=== PATIENT | male | born 1965 | race Caucasian/White ===

== ENCOUNTER 2022-11-14 07:59 | Outpatient (REF) | payer OTHER, SELFPAY ==
[2022-11-14 08:21] LABS: MANUAL DIFF FLAG NO
[2022-11-14 08:48] LABS: Basophils Percent Auto 0.5 % (0-2); Eosinophils Absolute Auto 0.1 X10*3/uL (0.0-0.4); Eosinophils Percent Auto 2.2 % (0-4); Hematocrit 45.5 % (42.0-52.0); Hemoglobin 15.8 g/dl (14.0-18.0); Imm Gran Abs Auto 0.01 X10*3/uL (0.00-0.03); Imm Gran Pct Auto 0.2 % (0.0-0.4); Lymphocytes Absolute Auto 2.7 X10*3/uL (1.2-4.9); Lymphocytes Percent Auto 46.7 % (20-40); Mean Corpuscular HGB Conc 34.7 g/dl (31.0-36.0); Mean Corpuscular Hemoglobin 31.9 pg (27.0-33.0); Mean Corpuscular Volume 91.9 fL (80.0-98.0); Mean Platelet Volume 9.1 fL (9.4-12.4); Monocytes Absolute Auto 0.4 X10*3/uL (0.1-1.2); Monocytes Percent Auto 6.3 % (2-11); Neutrophils Absolute Auto 2.6 x10*3/uL (2.0-8.3); Neutrophils Percent Auto 44.1 % (45-73); Platelet Count 235 X10*3/uL (160-400); Red Blood Count 4.95 X10*6/uL (4.60-5.80); Red Cell Distribution Width 12.2 % (11.0-16.0); White Blood Count 5.9 X10*3/uL (4.8-10.8)
[2022-11-14 09:11] LABS: Alanine Aminotransferase 22 U/L (0-40); Albumin Level 4.3 g/dL (3.5-5.0); Alkaline Phosphatase 66 U/L (39-117); Anion Gap 9 (12-20); Aspartate Amino Transferase 16 U/L (5-37); Bilirubin Total 0.8 mg/dL (0.0-1.0); Blood Urea Nitrogen 25 mg/dL (9-16); Calcium 9.8 mg/dL (8.4-10.2); Carbon Dioxide 29 mmol/L (22-29); Chloride 108 mmol/L (96-108); Cholesterol 172 mg/dL; Estimated Glomerular Filt Rate > 60; Glucose Random 171 mg/dL (60-115); HDL Cholesterol 35 mg/dL; LDL Cholesterol Calculated 110 mg/dl; Potassium 4.8 mmol/L (3.3-5.1); Sodium 141 mmol/L (135-145); Total Protein 6.8 g/dL (6.5-8.0); Triglycerides 139 mg/dL
[2022-11-14 09:47] LABS: Folate 11.5 ng/mL (> or = 4.0); Free T4 (Free Thyroxine) 1.02 ng/dL (0.71-1.85); Prostate Specific Antigen Scr 2.11 ng/mL (<0.05-4.0); Thyroid Stimulating Hormone 2.09 uIU/mL (0.32-4.0); Vitamin B12 469 pg/mL (200-900)
[2022-11-14 10:09] LABS: Creatinine Urine 335.24 mg/dL; Microalbum/Creatinine Ratio Ur 7.7 ug/mg cr
== END 2022-11-14 08:00 | disposition home or self-care (01) ==
LOC: HO.LAB 07:59
PROVIDERS: PCP Internal Medicine; Visit Provider Internal Medicine
DX: Z12.5 Encounter for screening for malignant neoplasm of prostate (principal); E11.65 Type 2 diabetes mellitus with hyperglycemia; E78.00 Pure hypercholesterolemia, unspecified; I10 Essential (primary) hypertension
CPT/HCPCS: 36415; 80053; 80061; 82043; 82607; 82746; 84153; 84439; 84443; 85025

== ENCOUNTER 2023-07-21 12:51 | Outpatient (AMB) | payer OTHER, SELFPAY ==
--- NOTE | 2023-07-21 12:53 | MHC.OFFVIS ---
Intake Vital Signs 07/21/23 12:54 Height 6 ft 1 in Weight 235 lb BMI 31.0 BP 155/91 H Blood Pressure Location Lt brachial Position Sitting Pulse 97 Pulse Source Pulse Oximeter Pulse Oximetry (%) 97 Oxygen Delivery Method Room Air Intake Visit Reasons: POSITIVE COLOG Intake Note: This patient presents for an assessment for positive cologuard. Patient c/o; reports no changes or complaints at this time. Certified Detention Deputy Required: No Accompanied by: Self / Same As Patient Allergies No Known Allergies Allergy (Verified 07/21/23 12:57) Medication List - Last Reconciled 07/21/23 by Bibi Sanders PA-C metformin 500 mg PO BID metoprolol tartrate 50 mg PO BID 90 days simvastatin 5 mg PO DAILY HPI HPI Comments History of Present Illness Details A 57-year-old male referred with positive Cologuard- he has no GI complaints. He says all his sisters had polyps- No Fam hx CRC- Appetite is very Bowels normal No cardiac or respiratory issues No nausea, vomiting, hematemesis, hematochezia fever chills PFSH Medical History Vitamin D deficiency Hypertension Obesity (BMI 30-39.9) Hypercholesterolemia Type 2 diabetes mellitus with hyperglycemia Surgical History History of sinus surgery Family History Father Hypertension Diabetes CVD (cardiovascular disease) Heart problem Mother Breast cancer Social History Housing: House Alcohol intake: former Patient Tobacco Use Status: Never used Tobacco e-Cigarette/Vaping Use: Never Used Second Hand Smoke Exposure: No Current occupational status: employed Cognitive needs: No Hearing needs: No Vision needs: No Review of Systems Const All systems reviewed & are unremarkable except as noted in HPI and below Card Denies chest pain and Denies dyspnea Resp Denies dyspnea GI Denies abdominal pain, Denies hematochezia, Denies change in bowel habits, Denies dyspepsia, Denies heartburn, Denies diarrhea, Denies nausea and Denies vomiting Physical Exam Vital Signs: Last Vital Signs Pulse 97 01/16/24 12:54 BP 155/91 H 07/21/23 12:54 Pulse Ox 97 07/21/23 12:54 Oxygen Delivery Method Room Air 07/21/23 12:54 BMI result Body Mass Index 31.0 Const General: cooperative, healthy appearing and comfortable Orientation/consciousness: patient oriented x3 Limitations: no limitations Eyes Sclerae: sclerae normal Resp Effort & Inspection: normal respiratory effort and able to speak in complete sentences Auscultation: clear to auscultation bilaterally, no rales, no rhonchi and no wheezes Cardio Rate: tachycardic (oct) Rhythm: regular rhythm Heart sounds: S1 normal heart sound present and S2 normal heart sound present GI Palpation (GI): Soft to palpation and nontender Auscultation: normal bowel sounds Skin General skin exam: no rashes or lesions noted Neuro General: patient oriented x3 Extrem General: Yes full ROM Psych Appearance: grossly normal and well kempt Mental Status: mental status grossly normal Speech and movement: Normal speech and movement present and Clear speech present Affect: normal affect Attitude: cooperative Thought process: Normal thought process present Thought content: Normal thought content present Insight: Good insight present (Psych) Judgement: Good judgement present (Psych) Assessment & Plan Assessment & Plan (1) Positive colorectal cancer screening using Cologuard test: Comment: Reviewed with patient Code(s): R19.5 - Other fecal abnormalities Plan: Index colonoscopy Discussed procedure, rare risk need for escort and prep Plan Index- Colonoscopy- MG prep Omit metformin yasir before and am of procedure- Orders: Orders Colonoscopy - GI Use Only Today R19.5 - Other fecal abnormalities Medications: New bisacodyl (Dulcolax (bisacodyl)) Day before procedure, prep day Take 4 tablets by mouth upon awakening followed by large glass of water 20 mg (4 x 5 mg) PO ONCE 1 day 4 tabs 0RF colonoscopy prep Z12.11 - Encounter for screening for malignant neoplasm of colon polyethylene glycol 3350 (Miralax) Take as directed by mouth the day before your procedure. 238 grams PO ONCE 1 day 238 grams 0RF laxative effect Patient Instructions: Index- Colonoscopy- MG prep reviewed, literature given Omit metformin yasir before and am of procedure- Coding Level of Care Code New Pt Level 3 (38181) Diagnoses Positive colorectal cancer screening using Cologuard test R19.5 Time Spent (min) 25
[2023-07-21 12:54] VITALS: BP 155/91; PULSE 97; O2SAT 97; BMI 31.0
== END 2023-07-21 13:30 | disposition home or self-care (01) ==
PROVIDERS: PCP Internal Medicine; Visit Provider Physician Assistant
DX: R19.5 Other fecal abnormalities (principal)
CPT/HCPCS: 99203

== ENCOUNTER → 2023-07-21 12:51 | Outpatient (BNVA) | payer OTHER, SELFPAY | PROVIDERS: PCP Internal Medicine; Visit Provider Physician Assistant ==

== ENCOUNTER 2023-09-04 16:11 | Outpatient (AMB) | payer OTHER, SELFPAY ==
--- NOTE | 2023-09-04 16:15 | A.OFFPC_ITS ---
Vital Signs 09/04/23 16:19 Height 6 ft 1 in Weight 245 lb BMI 32.3 BP 142/84 H Blood Pressure Location Lt brachial Position Sitting Pulse 86 Pulse Source Pulse Oximeter Pulse Oximetry (%) 98 Oxygen Delivery Method Room Air Intake Visit Reasons: Annual PE Allergies No Known Allergies Allergy (Verified 09/04/23 16:21) Medication List - Last Reconciled 09/04/23 by Sumit Faulkner MD bisacodyl (Dulcolax (bisacodyl)) 20 mg (4 x 5 mg) PO ONCE 1 day cholecalciferol (vitamin D3) 25 mcg PO DAILY metformin 500 mg PO BID metoprolol tartrate 50 mg PO BID 90 days polyethylene glycol 3350 (Miralax) 238 grams PO ONCE 1 day simvastatin 5 mg PO DAILY Tobacco use date assessed: 09/04/23 Dental Screening Dental Screen Date: 09/04/23 Did you have a dental visit in the last 12 months?: No Did you have a dental problem in the last 6 months where you did not have access to dental care?: No HPI Annual PE HPI Details 57-year-old obese male with uncontrolled diabetes mellitus hypercholesterolemia hypertension last seen in November 2022. Patient is here for physical exam. Cologuard positive May 2023 advised to see gastroenterology. [facility] Medical History Vitamin D deficiency Hypertension Obesity (BMI 30-39.9) Hypercholesterolemia Type 2 diabetes mellitus with hyperglycemia Surgical History History of sinus surgery Family History Father Hypertension Diabetes CVD (cardiovascular disease) Heart problem Mother Breast cancer Social History (Updated 09/04/23 @ 16:44 by Sumit Faulkner MD) Housing: House Alcohol intake: former Comment: stoppedd 2008 Patient Tobacco Use Status: Never used Tobacco e-Cigarette/Vaping Use: Never Used Second Hand Smoke Exposure: No Current occupational status: employed Cognitive needs: No Hearing needs: No Vision needs: No Questionnaire PHQ-9 Over the last 2 weeks, how often have you been bothered by any of the following problems? 1. Little interest or pleasure in doing things: not at all 2. Feeling down, depressed, or hopeless: not at all 3. Trouble falling or staying asleep, or sleeping too much: not at all 4. Feeling tired or having little energy: not at all 5. Poor appetite or overeating: not at all 6. Feeling bad about yourself - or that you are a failure or have let yourself or your family down: not at all 7. Trouble concentrating on things, such as reading the newspaper or watching television: not at all 8. Moving or speaking so slowly that other people could have noticed. Or the opposite - being so fidgety or restless that you have been moving around a lot more than usual: not at all 9. Thoughts that you would be better off or of hurting yourself in some way: not at all Total score: 0 Source: Developed by Drs. Kian Deras, Viji Mcclendon, Toney Espinosa and colleagues, with an educational kimber from [employer]. Thrive Questionnaire Date Thrive assessed: 11/07/21 AUDIT C Alcohol Use Questionnaire (AUDIT-C) 1. How often do you have a drink containing alcohol?: Never 3. How often do you have six or more drinks on one occasion?: Never Total Score: 0 STEVO-7 AMB Questionnaire STEVO-7 Date STEVO - 7 assessed: 09/04/23 Feeling nervous, anxious, or on edge: 0 = Not at all Not being able to stop or control worryin = Not at all Worrying too much about different things: 0 = Not at all Trouble relaxin = Not at all Being so restless that it is hard to sit still: 0 = Not at all Becoming easily annoyed or irritable: 0 = Not at all Feeling afraid as if something awful might happen: 0 = Not at all Total STEVO-7 score (0-4 normal; 5-9 mild; 10-14 moderate; 15-21 severe): 0 Source: Developed by Drs. Kian Deras, Viji Mcclendon, Toney Espinosa and colleagues, with an educational kimber from [employer]. Review of Systems Const Denies poor appetite and Denies weakness Eyes Denies no additional complaints ENT Reports Normal hearing present, Denies dizziness, Denies nasal congestion, Denies tinnitus and Denies sore throat Card Denies chest pain, Denies syncope, Denies rapid heart rate and Denies dyspnea Resp Denies cough and Denies dyspnea GI Denies change in stool character, Reports constipation, Denies diarrhea, Denies nausea and Denies vomiting Denies dysuria and Denies urinary frequency Neuro Reports Normal hearing present, Denies confusion, Denies dizziness, Denies syncope and Denies weakness Psych Denies confusion Physical exam (Primary Care) Vital Signs: Last Vital Signs Pulse 86 09/04/23 16:19 BP 142/84 H 09/04/23 16:19 Pulse Ox 98 09/04/23 16:19 Oxygen Delivery Method Room Air 09/04/23 16:19 BMI result Body Mass Index 32.3 Tobacco/Smoking Status: Tobacco use Status Tobacco use date assessed 09/04/23 09/04/23 16:24 Patient Tobacco Use Status Never used Tobacco 09/04/23 16:16 e-Cigarette/Vaping Use Never Used 09/04/23 16:16 PHQ-9: PHQ-9 Score PHQ-9: Total score 0 09/04/23 16:31 Thrive Assessment: Date of Thrive Assessment Date Thrive assessed 11/07/21 09/04/23 16:16 Const General: No confusion Orientation/consciousness: No confusion HENMT Head: Yes normocephalic Ears: external ears normal and TM's normal bilaterally Face and sinus: Yes normal facial exam Mouth: moist mucous membranes Throat: Yes tonsils normal Eyes Conjunctivae: conjunctivae normal Pupils: Equal, round and reactive pupils present and Pupil accommodation reflex normal Direct Ophthalmoscopy: normal light reflex Neck Neck: No lymphadenopathy Thyroid: Thyroid normal Chest Chest palpation & inspection: normal inspection of the chest Resp Effort & Inspection: normal respiratory effort and no audible wheezes Auscultation: clear to auscultation bilaterally, no crackles, no wheezes and lung sounds not diminished Cardio Rate: regular rate Rhythm: regular rhythm Peripheral pulses: radial pulses present and dorsalis pedis present GI Palpation (GI): no masses Auscultation: normal bowel sounds and normoactive bowel sounds Rectal Exam - Male: Yes deferred Skin General skin exam: no rashes or lesions noted Rashes: no rashes Neuro General: No confusion Cranial nerves: Yes Equal, round and reactive pupils present and Yes Normal hearing present Cognition (Neuro): normal cognition Gait exam (Neuro): Normal gait present Motor exam (neuro): 5/5 motor strength present throughout Deep tendon reflexes (DTR's): Right brachioradialis reflex intensity grade: 2+, Left brachioradialis reflex intensity grade: 2+, Right patellar reflex intensity grade: 2+ and Left patellar reflex intensity grade: 2+ Extrem General: No edema Results AMB Hemoglobin A1c AMB Hemoglobin A1c 8.6 % Last Edit by FEMI Fabian on 09/04/23 16:34 Assessment and Plan Assessment & Plan (1) Annual physical exam: Code(s): Z00.00 - Encounter for general adult medical examination without abnormal findings (2) Type 2 diabetes mellitus with hyperglycemia: Comment: EYE and LASIK Code(s): E11.65 - Type 2 diabetes mellitus with hyperglycemia Qualifiers: Diabetes mellitus nursing home insulin use: without clinical specialty rep use Qualified Code(s): E11.65 - Type 2 diabetes mellitus with hyperglycemia Plan: Decrease the amount of carbohydrate intake, pasta, bread, rice and potatoes are all sugar and that is aside from all the sweet stuff, remember that fruits are good but they are Sweet also. Hemoglobin A1c goal of less than 6.5. Patient is on metformin 500 mg twice a day. decline additional med for now and will ff up in 3 months (3) Hypercholesterolemia: Code(s): E78.00 - Pure hypercholesterolemia, unspecified Plan: Avoid fried foods, chicken skin, eggs, butter margarine, pastries and meat. Be it pork or beef they have a lot of cholesterol LDL goal of less than 100 and triglyceride of less than 150. Patient on simvastatin 5 mg once a day needs blood work November 2022 was the last time with LDL of 110 (4) Obesity (BMI 30-39.9): Code(s): E66.9 - Obesity, unspecified Plan: Diet and exercise noted weight gain (5) Hypertension: Code(s): I10 - Essential (primary) hypertension Qualifiers: Hypertension type: essential hypertension Qualified Code(s): I10 - Essential (primary) hypertension Plan: Continue with blood pressure medication. Decrease salt intake and exercise takes metoprolol 50 mg twice a day. BP high here , advised to monitor and record (6) Positive colorectal cancer screening using Cologuard test: Comment: Reviewed with patient Code(s): R19.5 - Other fecal abnormalities Plan: Colonoscopy due for in October 2023 (7) Anxiety: Code(s): F41.9 - Anxiety disorder, unspecified Plan: will be flying on an airplane. rx sent Orders: Orders AMB Hemoglobin A1c Today E11.65 - Type 2 diabetes mellitus with hyperglycemia Complete Blood Count Auto Diff 3 Months E11.65 - Type 2 diabetes mellitus with hyperglycemia Free T4 (Free Thyroxine) 3 Months E11.65 - Type 2 diabetes mellitus with hyperglycemia Thyroid Stimulating Hormone 3 Months E11.65 - Type 2 diabetes mellitus with hyperglycemia Vitamin B12 and Folate 3 Months E11.65 - Type 2 diabetes mellitus with hyperglycemia Prostate Specific Antigen Scr 3 Months E11.65 - Type 2 diabetes mellitus with hyperglycemia Comprehensive Met. Panel 3 Months E11.65 - Type 2 diabetes mellitus with hyperglycemia Lipid Panel 3 Months E11.65 - Type 2 diabetes mellitus with hyperglycemia, E78.00 - Pure hypercholesterolemia, unspecified Hemoglobin A1c 3 Months E11.65 - Type 2 diabetes mellitus with hyperglycemia Creatinine Urine 3 Months E11.65 - Type 2 diabetes mellitus with hyperglycemia Microalbumin, Random (w Creat) 3 Months E11.65 - Type 2 diabetes mellitus with hyperglycemia Medications: New alprazolam 0.25 mg PO DAILY PRN 7 tabs 0RF anxiety F41.9 - Anxiety disorder, unspecified Coding Level of Care Code Est Pt Prev Care 40-64y(01548) Diagnoses Annual physical exam Z00.00 Type 2 diabetes mellitus with hyperglycemia, without long-term current use of insulin E11.65 Diabetes mellitus clinical specialty rep insulin use: without nursing home use Hypercholesterolemia E78.00 Obesity (BMI 30-39.9) E66.9 Essential hypertension I10 Hypertension type: essential hypertension Positive colorectal cancer screening using Cologuard test R19.5 Anxiety F41.9
[2023-09-04 16:19] VITALS: BP 142/84; PULSE 86; O2SAT 98; BMI 32.3
== END 2023-09-04 16:59 | disposition home or self-care (01) ==
PROVIDERS: PCP Internal Medicine; Visit Provider Internal Medicine
DX: Z00.00 Encounter for general adult medical examination without abnormal findings (principal); E11.65 Type 2 diabetes mellitus with hyperglycemia; E78.00 Pure hypercholesterolemia, unspecified; I10 Essential (primary) hypertension; R19.5 Other fecal abnormalities; F41.9 Anxiety disorder, unspecified
CPT/HCPCS: 83036; 99396

== ENCOUNTER 2023-10-12 06:21 | Day surgery (SDC) | payer OTHER, SELFPAY ==
[2023-10-08 10:03] VITALS: BMI 32.3
--- NOTE | 2023-10-08 13:47 | P.CONAN_ITS ---
Documented by User: Mira Lowe NP 10/08/23 13:47 HPI - Anesthesia Eval Consult details Narrative: 58yo M for Colonoscopy PMFSH Active Problems Active Problems: All Active Problems Anxiety (Acute) Positive colorectal cancer screening using Cologuard test (Acute) Colon cancer screening (Acute) Colonoscopy refused (Acute) COVID-19 virus infection (Acute) Laceration of toe (Acute) Visit for suture removal (Acute) Annual physical exam (Acute) Hypertension (Acute) Obesity (BMI 30-39.9) (Acute) Hypercholesterolemia (Acute) Type 2 diabetes mellitus with hyperglycemia (Acute) Past Medical History Medical History Vitamin D deficiency Hypertension Obesity (BMI 30-39.9) Hypercholesterolemia Type 2 diabetes mellitus with hyperglycemia Family History Family History Father Hypertension Diabetes CVD (cardiovascular disease) Heart problem Mother Breast cancer Surgical History Surgical History History of sinus surgery Social History Social History Housing: House Alcohol intake: former Comment: stoppedd 2008 Patient Tobacco Use Status: Never used Tobacco e-Cigarette/Vaping Use: Never Used Second Hand Smoke Exposure: No Advance Directives: No Advance Directives Information Provided: Yes Current occupational status: employed Cognitive needs: No Hearing needs: No Vision needs: No Meds Allergies Allergy/AdvReac Type Severity Reaction Status Date / Time No Known Allergies Allergy Verified 09/04/23 16:21 Home Medications ?Medication ?Instructions ?Recorded ?Confirmed ?Last Taken ?Type cholecalciferol (vitamin D3) 25 25 mcg PO DAILY 09/04/23 09/04/23 Unknown History mcg (1,000 unit) capsule Exam Height,Weight and Vital Signs: Height 6 ft 1 in Weight 111.13 kg Assessment and Plan Assessment Anesthesia Assessment: Chart Reviewed Documented by User: Denia Cabral MD 10/12/23 07:24 [facility] Past Medical History Medical History Vitamin D deficiency Hypertension Obesity (BMI 30-39.9) Hypercholesterolemia Type 2 diabetes mellitus with hyperglycemia Family History Family History Father Hypertension Diabetes CVD (cardiovascular disease) Heart problem Mother Breast cancer Surgical History Surgical History History of sinus surgery History of Problems with Anesthesia: No Social History Social History Housing: House Alcohol intake: former Comment: stoppedd 2008 Patient Tobacco Use Status: Never used Tobacco e-Cigarette/Vaping Use: Never Used Second Hand Smoke Exposure: No Advance Directives: No Advance Directives Information Provided: Yes Current occupational status: employed Cognitive needs: No Hearing needs: No Vision needs: No Meds Allergies Allergy/AdvReac Type Severity Reaction Status Date / Time No Known Allergies Allergy Verified 09/04/23 16:21 Home Medications ?Medication ?Instructions ?Recorded ?Confirmed ?Last Taken ?Type cholecalciferol (vitamin D3) 25 25 mcg PO DAILY 09/04/23 09/04/23 Unknown History mcg (1,000 unit) capsule Exam Airway Mallampati Class: III TM Dist: >3cm Neck ROM: Full Loose/Missing/Broken Teeth: No Heart: RRR Lungs: CTA Assessment and Plan Assessment Anesthesia Assessment: Anesthesia Plan Discussed Final Anesthetic Review History of Problems with Anesthesia: No NPO: Yes ASA Class: II Final Preanesthetic Review: Meds/Allgs Chart Reviewed, Consent Obtained/Reviewed and Anes Risks/Benef Reviewed Patient Risk: Low Procedure Risk: Low Anesthetic Plan Anesthetic Plan: MAC: Disposition: Standard PACU
--- NOTE | 2023-10-12 05:58 | MHC.SHP ---
Pre-Procedural Eval Section A - 24 Hr Update-Section A only Date of Service: 10/12/23 Section B - Complete if H&P > 30 days Chief Complaint: Other fecal abnormalities Relevant Family History (Specify if Yes): No Relevant Social History: None Present Medications: see Short Stay Collaborative assessment Medical History: Significant History ( Vitamin D deficiency Hypertension Obesity (BMI 30-39.9) Hypercholesterolemia Type 2 diabetes mellitus with hyperglycemia) History of Previous Operations: Relevant previous surgery/procedure and date(s) (History of sinus surgery) Allergies: Allergies Allergy/AdvReac Type Severity Reaction Status Date / Time No Known Allergies Allergy Verified 09/04/23 16:21 Family History Family History Father Hypertension Diabetes CVD (cardiovascular disease) Heart problemMother Breast cancer Surgical History Surgical History Review of Systems Sugical H&P ROS: Negative: Constitution, Cardiovascular, Respiratory, Neurological, Psychiatric, Hem-Onc, Allergic/Immunologic, Gastrointestinal, Genitourinary, Musculoskeletal, Integumentary, Endocrine and Eyes/Ears/Nose/Throat Exam Surgical H&P Exam: Normal: HEENT, Normal: Heart, Normal: Lungs, Normal: Extremities, Normal: Abdomen, Normal: Skin and Normal: Neurological Plan Diagnosis/Plan: Unchanged I have reviewed the history and physical and performed a pertinent physical examination on my patient. No changes have occurred unless specified. Time Spent With Patient Time: Total time managing care of this patient today ____ minutes.
[2023-10-12 07:13] VITALS: BP 169/96; PULSE 122; RESP 16; TEMP 37; O2SAT 98
[2023-10-12] MEDS: Lactated Ringers 1,000 ML 100 ML IVCONT (07:21)
[2023-10-12 07:27] LABS: Glucose, Whole Blood 208 mg/dL (60-115)
--- NOTE | 2023-10-12 07:40 | W.PM.OPN ---
Operative Note Operative Note Date of Service: 10/12/23 Narrative: Operative Information Procedure Description: Colonoscopy Indication: pos cologuard Anesthesia: MAC COLONOSCOPY Instrument: Olympus variable stiffness pediatric scope 190L Colonoscopy Monitoring: Vital signs and clinical assessment, continuous EKG monitoring, Pulse oximetry, Carbon Dioxide monitoring and blood pressure monitoring were done throughout the procedure. Colon withdrawal time was 29 minutes. Procedure: The patient was placed in the left lateral decubitis position and pre-procedure medications were administered. After a digital rectal examination of the ano-rectum, the video colonoscope was inserted into the rectum and advanced through the colon to the cecum/TI. The colonoscope was slowly withdrawn in a retrograde panoramic fashion and the colon mucosa was carefully examined including a retroflexed view of the rectum. Findings and interventions are described below. Procedure Difficulty: moderate Findings: Terminal Ileum-normal Cecum: 5-8 mm sessile polyp removed with cold forceps Ascending Colon: proximal lateral granular spreading lesion 12-15 mm, raised with eleview and then removed with hot snare, with 3 clips placed to close defect. The polyp was retrieved with net. Transverse Colon -normal Descending Colon:normal Sigmoid Colon: normal Rectum: Retroflexion with small internal hemorrhoids seen, grade I, 8-10 mm sessile polyp removed with cold snare, 4-5 mm sessile polyp removed with cold forceps Anorectum - normal Intervention: EMR polypectomy, and cold forceps, cold snare Colon preparation: [place] Bowel Preparation Scale Right colon; 2 Transverse colon: 2 Left colon; 1-2 (0 = Unprepared colon segment with mucosa not seen due to solid stool that cannot be cleared. 1 = Portion of mucosa of the colon segment seen, but other areas of the colon segment not well seen due to staining, residual stool and/or opaque liquid. 2 = Minor amount of residual staining, small fragments of stool and/or opaque liquid, but mucosa of colon segment seen well. 3 = Entire mucosa of colon segment seen well with no residual staining, small fragments of stool or opaque liquid) Impression and Post Procedure Diagnosis: colon polyps internal hemorrhoids Plan: High fiber diet leaflet Avoid straining at stool, epsom salts and sitz bath, anusol supps or cream Repeat Colonoscopy in 6-8 months or earlier if clinically indicated Above findings were reviewed with the patient and relevant handouts were provided if indicated.
[2023-10-12 08:30] VITALS: BP 90/45; PULSE 103; RESP 18; TEMP 36.9; O2SAT 99
[2023-10-12 08:45] VITALS: BP 135/97; PULSE 106; RESP 16; TEMP 36.9; O2SAT 96
== END 2023-10-12 09:20 | disposition home or self-care (01) ==
PROVIDERS: PCP Internal Medicine; Visit Provider Internal Medicine Gastroenterology
PROC: 0DJD8ZZ Inspection of Lower Intestinal Tract, Via Natural or Artificial Opening Endoscopic (ICD-10-PCS; CPT 45378; principal; 2023-10-12 07:30)
DX: R19.5 Other fecal abnormalities (principal); D12.0 Benign neoplasm of cecum; D12.2 Benign neoplasm of ascending colon; D12.8 Benign neoplasm of rectum; K64.0 First degree hemorrhoids; I10 Essential (primary) hypertension; E78.00 Pure hypercholesterolemia, unspecified; E55.9 Vitamin D deficiency, unspecified; E11.65 Type 2 diabetes mellitus with hyperglycemia; E66.9 Obesity, unspecified; Z68.31 Body mass index [BMI] 31.0-31.9, adult; Z79.84 Long term (current) use of oral hypoglycemic drugs; Z79.899 Other long term (current) drug therapy
CPT/HCPCS: 45385; 45380; 45381; 82947; 88305; J2250; J2704

== ENCOUNTER → 2023-10-12 06:21 | Outpatient (BNV) | payer OTHER, SELFPAY | PROVIDERS: PCP Internal Medicine; Visit Provider Internal Medicine Gastroenterology | DX: Z12.11 Encounter for screening for malignant neoplasm of colon (principal); R19.5 Other fecal abnormalities; D12.0 Benign neoplasm of cecum; D12.8 Benign neoplasm of rectum; K63.5 Polyp of colon; K64.0 First degree hemorrhoids | CPT/HCPCS: 45380; 45381; 45385 ==

== ENCOUNTER 2023-10-26 12:40 | Outpatient (AMB) | payer OTHER, SELFPAY ==
--- NOTE | 2023-10-26 12:42 | MHC.OFFVIS ---
Vital Signs 10/26/23 12:45 Height 6 ft 1 in Weight 245 lb BMI 32.3 BP 150/81 H Blood Pressure Location Lt brachial Position Sitting Pulse 88 Intake Visit Reasons: s/p colon Intake Note: Patient is seen in office for post op assessment post colonoscopy. Pt c/o: no concerns at the time of visit Billing Collections Specialist Required: No Accompanied by: Self / Same As Patient Allergies No Known Allergies Allergy (Verified 10/26/23 12:48) Medication List - Last Reconciled 10/26/23 by Bibi Sanders PA-C alprazolam 0.25 mg PO DAILY PRN bisacodyl (Dulcolax (bisacodyl)) 20 mg (4 x 5 mg) PO ONCE 1 day cholecalciferol (vitamin D3) 25 mcg PO DAILY metformin 500 mg PO BID metoprolol tartrate 50 mg PO BID 90 days polyethylene glycol 3350 (Miralax) 238 grams PO ONCE 1 day simvastatin 5 mg PO DAILY HPI Comments Details: 58-year-old male follows up after recent index screening colonoscopy-he tolerated procedure well he has however nervous about results He has no GI complaints- He does admit that he did eat the morning before procedure as he misunderstood is instructions Reviewed procedure report, pathology and recommendations Appetite is good Bowels are ok No nausea, vomiting, hematemesis, hematochezia fever or chills PFSH Medical History (Updated 10/26/23 @ 13:26 by Bibi Sanders PA-C) Vitamin D deficiency Hypertension Obesity (BMI 30-39.9) Hypercholesterolemia Type 2 diabetes mellitus with hyperglycemia Surgical History Hx of colonoscopy History of sinus surgery Family History Father Hypertension Diabetes CVD (cardiovascular disease) Heart problem Mother Breast cancer Social History Housing: House Alcohol intake: former Comment: stoppedd 2008 Patient Tobacco Use Status: Never used Tobacco e-Cigarette/Vaping Use: Never Used Second Hand Smoke Exposure: No Current occupational status: employed Cognitive needs: No Hearing needs: No Vision needs: No Review of Systems Const All systems reviewed & are unremarkable except as noted in HPI and below Card Denies chest pain and Denies dyspnea Resp Denies dyspnea Psych Reports anxiety Physical Exam Vital Signs: Last Vital Signs Pulse 88 10/26/23 12:45 BP 150/81 H 10/26/23 12:45 BMI result Body Mass Index 32.3 Const General: cooperative, healthy appearing, comfortable, no acute distress and well groomed Orientation/consciousness: patient oriented x3 Limitations: no limitations Eyes Sclerae: sclerae normal Resp Effort & Inspection: normal respiratory effort and able to speak in complete sentences Auscultation: wheezes Neuro General: patient oriented x3 Extrem General: Yes full ROM Psych Appearance: grossly normal and well kempt Mental Status: mental status grossly normal Speech and movement: Normal speech and movement present and Clear speech present Affect: normal affect Attitude: cooperative Thought process: Normal thought process present Thought content: Normal thought content present Insight: Good insight present (Psych) Judgement: Good judgement present (Psych) Results Reviewed Results Reviewed: Age/Sex: 58/M Attending: Dhiraj Munguia MD : 1965 Submitted by: Dhiraj Munguia MD Copies to: Sumit Faulkner MD MR #: [id number] Status: [facility] Collected: 10/12/23 Location: [facility] Received: 10/12/23 Diagnosis A. Colon, ascending, polypectomy: Sessile serrated polyp with cytologic dysplasia. See comment. B. Cecum, polypectomy: Tubular adenoma; negative for high-grade dysplasia or carcinoma. C. Rectum, polypectomies (2): Fragments of tubular adenomata; negative for high-grade dysplasia or carcinoma. Comment: Part A has areas of traditional high-grade adenomatous dysplasia. The entire lesion should be removed, if not done so already. Clinical History Pre-Op Dx: Screening Post-Op Dx: Colon polyps, hemorrhoids Microscopic Description A-C. Microscopic sections reviewed. Material Received A. Ascending colon polyp B. Cecal polyp C. Rectal polyp X2 Gross Description Received in 3 parts. A. Received in formalin labeled ?ascending colon polyp? is a polypoid portion of pink-deal soft tissue measuring 1.5 x 0.9 x 0.7 cm in greatest dimension. The base of this specimen is inked blue. The specimen is trisected and entirely submitted for microscopic examination, 3 pieces in cassette A. B. Received in formalin labeled ?cecal polyp? is a rounded fragment of red-pink soft tissue measuring 0.2 cm in diameter which is wrapped in lens paper and entirely submitted for microscopic examination, 1 piece in cassette B. C. Received in formalin labeled ?rectal polyps x2? are multiple fragments of friable pink-deal soft tissue ranging from 0.2-0.9 cm in greatest dimension which are wrapped in lens paper and entirely submitted for microscopic examination, multiple pieces in cassette [facility] Patient: Tom Doshi Age/Sex: 58/M MR#: [id number] Page 1 of 2 mpression and Post Procedure Diagnosis: colon polyps internal hemorrhoids Plan: High fiber diet leaflet Avoid straining at stool, epsom salts and sitz bath, anusol supps or cream Repeat Colonoscopy in 6-8 months or earlier if clinically indicated I calledand tell pt he needs another colonoscopy in 3-6 months, one area had some abnormal shaped cells, initially I said 6-8 months but should be sooner and also patient have follow up on 10/25 with Bibi. Assessment & Plan Assessment & Plan (1) Sessile serrated polyp of colon: Comment: Diagnosis A. Colon, ascending, polypectomy: Sessile serrated polyp with cytologic dysplasia. See comment. B. Cecum, polypectomy: Tubular adenoma; negative for high-grade dysplasia or carcinoma. C. Rectum, polypectomies (2): Fragments of tubular adenomata; negative for high-grade dysplasia or carcinoma. Comment: Part A has areas of traditional high-grade adenomatous dysplasia. The entire lesion should be removed, if not done so already. Code(s): D12.6 - Benign neoplasm of colon, unspecified Category: Medical Plan: Colonoscopy 3 months (2) Tubular adenoma: Code(s): D36.9 - Benign neoplasm, unspecified site Category: Medical Plan 3 mos Munguia MG prep/ miralax QD x 1 wk< hold metformin day before and a.m. of proc. Orders: Orders Colonoscopy - GI Use Only Today D12.6 - Benign neoplasm of colon, unspecified Medications: New polyethylene glycol 3350 (Miralax) 17 GM QD x 1 week prior to prep day 17 grams PO DAILY PRN 510 grams 1RF laxative effect Refilled polyethylene glycol 3350 (Miralax) Take as directed by mouth the day before your procedure. 238 grams PO ONCE 1 day 238 grams 0RF laxative effect bisacodyl (Dulcolax (bisacodyl)) Day before procedure, prep day Take 4 tablets by mouth upon awakening followed by large glass of water 20 mg (4 x 5 mg) PO ONCE 1 day 4 tabs 0RF colonoscopy prep Z12.11 - Encounter for screening for malignant neoplasm of colon Patient Instructions: Pleasant 58-year-old male follows up after screening colonoscopy with polypectomy- Reviewed procedure report, pathology and recommendation Opportunity for questions answered to his satisfaction Will schedule repeat colon 3 mos-with extended prep With Dr. Nilda WRIGHT prep/ miralax QD x 1 wk< hold metformin day before and a.m. of proc. Encouraged to call with any questions concerns or medication change
[2023-10-26 12:45] VITALS: BP 150/81; PULSE 88; BMI 32.3
== END 2023-10-26 14:03 | disposition home or self-care (01) ==
LOC: HO.HGI 12:40
PROVIDERS: PCP Internal Medicine; Visit Provider Physician Assistant
DX: D12.6 Benign neoplasm of colon, unspecified (principal); D36.9 Benign neoplasm, unspecified site
CPT/HCPCS: 99213

== ENCOUNTER → 2023-10-26 12:40 | Outpatient (BNVA) | payer OTHER, SELFPAY | PROVIDERS: PCP Internal Medicine; Visit Provider Physician Assistant ==

== ENCOUNTER 2023-12-30 07:06 | Day surgery (SDC) | payer OTHER, SELFPAY ==
[2023-12-28 14:26] VITALS: BMI 32.3
--- NOTE | 2023-12-29 08:26 | HO.ANESPROP2 ---
Documented by User: Mira Lowe NP 12/29/23 08:27 HPI - Anesthesia Eval Consult details Narrative: 58yo M for Colonoscopy PMFSH Active Problems Active Problems: All Active Problems Tubular adenoma (Acute) Sessile serrated polyp of colon (Acute) Anxiety (Acute) Positive colorectal cancer screening using Cologuard test (Acute) Colon cancer screening (Acute) Colonoscopy refused (Acute) COVID-19 virus infection (Acute) Laceration of toe (Acute) Visit for suture removal (Acute) Annual physical exam (Acute) Hypertension (Acute) Obesity (BMI 30-39.9) (Acute) Hypercholesterolemia (Acute) Type 2 diabetes mellitus with hyperglycemia (Acute) Past Medical History Medical History Vitamin D deficiency Hypertension Obesity (BMI 30-39.9) Hypercholesterolemia Type 2 diabetes mellitus with hyperglycemia Family History Family History Father Hypertension Diabetes CVD (cardiovascular disease) Heart problem Mother Breast cancer Surgical History Surgical History Hx of colonoscopy History of sinus surgery History of Problems with Anesthesia: No Social History Social History Housing: House Alcohol intake: former Comment: stoppedd 2008 Patient Tobacco Use Status: Never used Tobacco e-Cigarette/Vaping Use: Never Used Second Hand Smoke Exposure: No Are you DNR?: No Advance Directives: No Advance Directives Information Provided: Yes Nutrition Risks: No Nutritional Risk Current occupational status: employed Cognitive needs: No Hearing needs: No Vision needs: No Meds Allergies Allergy/AdvReac Type Severity Reaction Status Date / Time No Known Allergies Allergy Verified 10/26/23 12:48 Home Medications ?Medication ?Instructions ?Recorded ?Confirmed ?Last Taken ?Type cholecalciferol (vitamin D3) 25 25 mcg PO DAILY 09/04/23 12/30/23 Unknown History mcg (1,000 unit) capsule Exam Height,Weight and Vital Signs: Height 6 ft 1 in Weight 111.13 kg Assessment and Plan Assessment Anesthesia Assessment: Chart Reviewed Final Anesthetic Review History of Problems with Anesthesia: No Documented by User: Aminata Brown MD 12/30/23 08:21 PMFSH Past Medical History Medical History Vitamin D deficiency Hypertension Obesity (BMI 30-39.9) Hypercholesterolemia Type 2 diabetes mellitus with hyperglycemia Family History Family History Father Hypertension Diabetes CVD (cardiovascular disease) Heart problem Mother Breast cancer Family history of problems with anesthesia: No Surgical History Surgical History Hx of colonoscopy History of sinus surgery Social History Social History Housing: House Alcohol intake: former Comment: stoppedd 2008 Patient Tobacco Use Status: Never used Tobacco e-Cigarette/Vaping Use: Never Used Second Hand Smoke Exposure: No Are you DNR?: No Advance Directives: No Advance Directives Information Provided: Yes Nutrition Risks: No Nutritional Risk Current occupational status: employed Cognitive needs: No Hearing needs: No Vision needs: No Meds Allergies Allergy/AdvReac Type Severity Reaction Status Date / Time No Known Allergies Allergy Verified 10/26/23 12:48 Home Medications ?Medication ?Instructions ?Recorded ?Confirmed ?Last Taken ?Type cholecalciferol (vitamin D3) 25 25 mcg PO DAILY 09/04/23 12/30/23 Unknown History mcg (1,000 unit) capsule Exam Airway Mallampati Class: II TM Dist: >3cm Neck ROM: Full Heart: rrr Lungs: cta Assessment and Plan Assessment Anesthesia Assessment: Anesthesia Plan Discussed Final Anesthetic Review Family History of Problems with Anesthesia: No NPO: Yes ASA Class: III Final Preanesthetic Review: No Changes in Pt Med Stat, Meds/Allgs Chart Reviewed, Consent Obtained/Reviewed and Anes Risks/Benef Reviewed Patient Risk: Intermediate Procedure Risk: Low Anesthetic Plan Anesthetic Plan: MAC: Disposition: Standard PACU
[2023-12-30 07:31] VITALS: BP 151/100; PULSE 88; RESP 17; TEMP 36.9; O2SAT 98; BMI 32.7
[2023-12-30 07:46] LABS: Glucose, Whole Blood 176 mg/dL (60-115)
[2023-12-30 07:56] VITALS: BP 153/94
[2023-12-30] MEDS: Lactated Ringers 1,000 ML 100 ML IVCONT (07:56)
--- NOTE | 2023-12-30 08:31 | MHC.SHP ---
Pre-Procedural Eval Section A - 24 Hr Update-Section A only Date of Service: 12/30/23 Section B - Complete if H&P > 30 days Chief Complaint: Benign neoplasm of colon, unspecified Relevant Family History (Specify if Yes): No Relevant Social History: None Present Medications: see Short Stay Collaborative assessment Medical History: Significant History (Vitamin D deficiency Hypertension Obesity (BMI 30-39.9) Hypercholesterolemia Type 2 diabetes mellitus with hyperglycemia) History of Previous Operations: Relevant previous surgery/procedure and date(s) (Hx of colonoscopy History of sinus surgery) Allergies: Allergies Allergy/AdvReac Type Severity Reaction Status Date / Time No Known Allergies Allergy Verified 10/26/23 12:48 Review of Systems Sugical H&P ROS: Negative: Constitution, Cardiovascular, Respiratory, Neurological, Psychiatric, Hem-Onc, Allergic/Immunologic, Gastrointestinal, Genitourinary, Musculoskeletal, Integumentary, Endocrine and Eyes/Ears/Nose/Throat Exam Surgical H&P Exam: Normal: HEENT, Normal: Heart, Normal: Lungs, Normal: Extremities, Normal: Abdomen, Normal: Skin and Normal: Neurological Plan Diagnosis/Plan: Unchanged I have reviewed the history and physical and performed a pertinent physical examination on my patient. No changes have occurred unless specified. Time Spent With Patient Time: Total time managing care of this patient today ____ minutes.
--- NOTE | 2023-12-30 08:32 | P.OP_ITS ---
Operative Note Operative Note Date of Service: 12/30/23 Narrative: Operative Information Procedure Description: Colonoscopy Indication: hx of polyp with dysplasia Anesthesia: MAC COLONOSCOPY Instrument: Olympus variable stiffness ADULT scope 190L Colonoscopy Monitoring: Vital signs and clinical assessment, continuous EKG monitoring, Pulse oximetry, Carbon Dioxide monitoring and blood pressure monitoring were done throughout the procedure. Colon withdrawal time was 34 minutes. Procedure: The patient was placed in the left lateral decubitis position and pre-procedure medications were administered. After a digital rectal examination of the ano-rectum, the video colonoscope was inserted into the rectum and advanced through the colon to the cecum/TI. The colonoscope was slowly withdrawn in a retrograde panoramic fashion and the colon mucosa was carefully examined including a retroflexed view of the rectum. Findings and interventions are described below. Procedure Difficulty: easy Findings: Terminal Ileum-normal Cecum:normal Ascending Colon: 5-6 mm sessile polyp removed with biopsy forceps. A clip from prior resection site was ntoed with some granualation tissue surrounding it. I tried to removed the clip but was unsuccessful. The area was raised with eleview and then a combination of cold snare and jumbo biopsy used to take tissue samples from the area Transverse Colon -normal Descending Colon x 2 sessile polyps 6-8 mm removed with cold snare Sigmoid Colon: mild diverticulosis Rectum: Retroflexion with small internal hemorrhoids seen, grade I Anorectum - normal Intervention: cold snare, biopsy and eleview injection Colon preparation: [place] Bowel Preparation Scale Right colon; 2 Transverse colon: 2 Left colon; 2 (0 = Unprepared colon segment with mucosa not seen due to solid stool that cannot be cleared. 1 = Portion of mucosa of the colon segment seen, but other areas of the colon segment not well seen due to staining, residual stool and/or opaque liquid. 2 = Minor amount of residual staining, small fragments of stool and/or opaque liquid, but mucosa of colon segment seen well. 3 = Entire mucosa of colon segment seen well with no residual staining, small fragments of stool or opaque liquid) Impression and Post Procedure Diagnosis: diverticulosis colon polyps internal hemorrhoids Plan: High fiber diet leaflet Avoid straining at stool, epsom salts and sitz bath, anusol supps or cream Repeat Colonoscopy in 6-12 months or earlier if clinically indicated. If ongoing high grade dysplasia then refer for surgical evaluation. Above findings were reviewed with the patient and relevant handouts were provided if indicated.
[2023-12-30 09:25] VITALS: BP 99/63; PULSE 81; RESP 16; TEMP 36.1; O2SAT 97
[2023-12-30 09:40] VITALS: BP 125/76; PULSE 80; RESP 15; TEMP 36.6; O2SAT 97
--- NOTE | 2023-12-30 10:05 | PC.NURSE ---
PATIENT ALREADY HAS HIS PRESCRIPTION AT HOME.
== END 2023-12-30 10:08 | disposition home or self-care (01) ==
PROVIDERS: PCP Internal Medicine; Visit Provider Internal Medicine Gastroenterology
PROC: 0DJD8ZZ Inspection of Lower Intestinal Tract, Via Natural or Artificial Opening Endoscopic (ICD-10-PCS; CPT 45378; principal; 2023-12-30 08:30)
DX: Z12.11 Encounter for screening for malignant neoplasm of colon (principal); Z86.010 Personal history of colon polyps; D12.2 Benign neoplasm of ascending colon; D12.4 Benign neoplasm of descending colon; D12.8 Benign neoplasm of rectum; K57.30 Diverticulosis of large intestine without perforation or abscess without bleeding; K64.0 First degree hemorrhoids; I10 Essential (primary) hypertension; E11.65 Type 2 diabetes mellitus with hyperglycemia; E55.9 Vitamin D deficiency, unspecified; E78.00 Pure hypercholesterolemia, unspecified; E66.9 Obesity, unspecified; Z68.32 Body mass index [BMI] 32.0-32.9, adult; Z79.84 Long term (current) use of oral hypoglycemic drugs; Z79.899 Other long term (current) drug therapy
CPT/HCPCS: 45385; 45380; 45381; 82947; 88305; J2704

== ENCOUNTER → 2023-12-30 07:06 | Outpatient (BNV) | payer OTHER, SELFPAY | PROVIDERS: PCP Internal Medicine; Visit Provider Internal Medicine Gastroenterology | DX: Z12.11 Encounter for screening for malignant neoplasm of colon (principal); Z86.010 Personal history of colon polyps; D12.2 Benign neoplasm of ascending colon; D12.4 Benign neoplasm of descending colon; K64.0 First degree hemorrhoids | CPT/HCPCS: 45380; 45381; 45385 ==

== ENCOUNTER 2024-12-26 14:02 | Outpatient (AMB) | payer OTHER, SELFPAY ==
[2024-12-26 14:42] VITALS: BP 150/88; PULSE 122; TEMP 36.3; O2SAT 97; BMI 31.6
--- NOTE | 2024-12-26 14:42 | A.OFFPC_ITS ---
Vital Signs 12/26/24 14:42 Height 6 ft 1 in Weight 239 lb 4 oz BMI 31.6 BP 150/88 H Blood Pressure Location Lt brachial Position Sitting Pulse 122 H Pulse Source Pulse Oximeter Temp 97.3 F Temp Source Temporal Artery Scan Pulse Oximetry (%) 97 Oxygen Delivery Method Room Air Intake Visit Reasons: follow up Allergies No Known Allergies Allergy (Verified 12/26/24 14:47) Medication List - Last Reconciled 12/26/24 by Sumit Faulkner MD alprazolam 0.25 mg PO DAILY PRN amoxicillin-pot clavulanate 875-125 mg 1 tab PO BID cholecalciferol (vitamin D3) 25 mcg PO DAILY metformin 500 mg PO BID metoprolol tartrate 50 mg PO BID 90 days simvastatin 5 mg PO DAILY Tobacco use date assessed: 12/26/24 Dental Screening Dental Screen Date: 12/26/24 Did you have a dental visit in the last 12 months?: No Did you have a dental problem in the last 6 months where you did not have access to dental care?: No Was dental information given to patient?: Patient has dentist [facility] Medical History (Updated 12/26/24 @ 15:21 by Sumit Faulkner MD) Colonoscopy refused Vitamin D deficiency Hypertension Obesity (BMI 30-39.9) Hypercholesterolemia Type 2 diabetes mellitus with hyperglycemia Surgical History Hx of colonoscopy History of sinus surgery Family History Father Hypertension Diabetes CVD (cardiovascular disease) Heart problem Mother Breast cancer Social History Housing: House Alcohol intake: former Comment: stoppedd 2008 Patient Tobacco Use Status: Never used Tobacco e-Cigarette/Vaping Use: Never Used Second Hand Smoke Exposure: No Current occupational status: employed Cognitive needs: No Hearing needs: No Vision needs: No Questionnaire PHQ-9 Over the last 2 weeks, how often have you been bothered by any of the following problems? 1. Little interest or pleasure in doing things: not at all 2. Feeling down, depressed, or hopeless: not at all 3. Trouble falling or staying asleep, or sleeping too much: not at all 4. Feeling tired or having little energy: not at all 5. Poor appetite or overeating: not at all 6. Feeling bad about yourself - or that you are a failure or have let yourself or your family down: not at all 7. Trouble concentrating on things, such as reading the newspaper or watching television: not at all 8. Moving or speaking so slowly that other people could have noticed. Or the opposite - being so fidgety or restless that you have been moving around a lot more than usual: not at all 9. Thoughts that you would be better off or of hurting yourself in some way: not at all Total score: 0 Depression Screening Interpretation: Negative Depression Screening Done: Yes 14777 - PHQ-9 Billing: Yes Source: Developed by Drs. Kian Deras, Viji Mcclendon, Toney Espinosa and colleagues, with an educational kimber from [employer]. Thrive Questionnaire Date Thrive assessed: 12/26/24 I am a: Patient What is your living situation today?: I have a steady place to live Within the past 12 months, did the food you bought not last and you didn't have the money to get more?: I choose not to answer this question Within the past 12 months, did you worry whether your food would run out before you got money to buy more?: I choose not to answer this question Do you have trouble paying for medicines?: No Do you have trouble getting transportation to medical appointments?: No Do you have trouble paying your heating and electricity bill?: No Do you have trouble taking care of your child, family member or friend?: No Do you have trouble with day-to-day activities such as bathing, preparing meals, shopping, managing finances, etc.?: No Are you currently unemployed and looking for a job?: No Are you interested in more education?: No Please select the resources that you would like help with: None Currently or been in a relationship where the following occur: No concerns reported THRIVE Score: 0 AUDIT C Alcohol Use Questionnaire (AUDIT-C) 1. How often do you have a drink containing alcohol?: Never 3. How often do you have six or more drinks on one occasion?: Never Total Score: 0 STEVO-7 AMB Questionnaire STEVO-7 Date STEVO - 7 assessed: 12/26/24 Feeling nervous, anxious, or on edge: 0 = Not at all Not being able to stop or control worryin = Not at all Worrying too much about different things: 0 = Not at all Trouble relaxin = Not at all Being so restless that it is hard to sit still: 0 = Not at all Becoming easily annoyed or irritable: 0 = Not at all Feeling afraid as if something awful might happen: 0 = Not at all Total STEVO-7 score (0-4 normal; 5-9 mild; 10-14 moderate; 15-21 severe): 0 Source: Developed by Drs. Kian Deras, Viji Mcclendon, Toney Espinosa and colleagues, with an educational kimber from [employer]. STEVO-7 Assessment Billing STEVO-7 Assessment Tool: STEVO-7 Assessment 81617 Physical exam (Primary Care) Vital Signs: Last Vital Signs Temp 97.3 F 12/26/24 14:42 Pulse 122 H 12/26/24 14:42 BP 150/88 H 12/26/24 14:42 Pulse Ox 97 12/26/24 14:42 Oxygen Delivery Method Room Air 12/26/24 14:42 BMI result Body Mass Index 31.6 Tobacco/Smoking Status: Tobacco use Status Tobacco use date assessed 12/26/24 12/26/24 14:47 Patient Tobacco Use Status Never used Tobacco 12/26/24 14:47 e-Cigarette/Vaping Use Never Used 12/26/24 14:47 PHQ-9: PHQ-9 Score PHQ-9: Total score 0 12/26/24 15:16 Depression Screening Interpretation: Negative Thrive Assessment: Date of Thrive Assessment Date Thrive assessed 12/26/24 12/26/24 14:49 Currently or been in a relationship where the following occur: No concerns reported Const General: alert; No acute distress Eyes Conjunctivae: conjunctivae normal Resp Auscultation: clear to auscultation bilaterally Cardio Rate: regular rate Rhythm: regular rhythm GI Inspection: Yes normal to inspection Extrem General: Yes normal to inspection and No edema Results AMB Hemoglobin A1c AMB Hemoglobin A1c 10.2 % Last Edit by Diana Graves CMA on 12/26/24 14:51 Results Reviewed Results Reviewed: Laboratory Last Values Hgb A1c (Clinic) 10.2 % (4.0-6.0) H 12/26/24 14:49 Coding Level of Care Code Est Pt Level 4 (98988) Complex EM visit Add On G2211 Diagnoses Type 2 diabetes mellitus with hyperglycemia, without long-term current use of insulin E11.65 Diabetes mellitus intermediate teacher insulin use: without group home use Essential hypertension I10 Hypertension type: essential hypertension Hypercholesterolemia E78.00 Sessile serrated polyp of colon D12.6 Sinus congestion R09.81 Additional Codes STEVO-7 Assessment Billing - STEVO-7 Assessment Tool: STEVO-7 Assessment 08231 ([id number]) PHQ-9 - 41258 - PHQ-9 Billing: Yes ([id number]) Assessment & Plan Assessment & Plan (1) Type 2 diabetes mellitus with hyperglycemia: Comment: EYE and LASIK Code(s): E11.65 - Type 2 diabetes mellitus with hyperglycemia Category: Medical Qualifiers: Diabetes mellitus intermediate teacher insulin use: without group home use Qualified Code(s): E11.65 - Type 2 diabetes mellitus with hyperglycemia Plan: Decrease the amount of carbohydrate intake, pasta, bread, rice and potatoes are all sugar and that is aside from all the sweet stuff, remember that fruits are good but they are Sweet also. Hemoglobin A1c goal of less than 6.5 patient is on metformin 500 mg twice a day only (2) Hypertension: Code(s): I10 - Essential (primary) hypertension Category: Medical Qualifiers: Hypertension type: essential hypertension Qualified Code(s): I10 - Essential (primary) hypertension Plan: Continue with blood pressure medication. Decrease salt intake and exercise presently on metoprolol 50 mg twice a day only (3) Hypercholesterolemia: Code(s): E78.00 - Pure hypercholesterolemia, unspecified Category: Medical Plan: Avoid fried foods, chicken skin, eggs, butter margarine, pastries and meat. Be it pork or beef they have a lot of cholesterol patient needs to have blood work on simvastatin 5 mg once a day (4) Sessile serrated polyp of colon: Comment: Diagnosis A. Colon, ascending, polypectomy: Sessile serrated polyp with cytologic dysplasia. See comment. B. Cecum, polypectomy: Tubular adenoma; negative for high-grade dysplasia or carcinoma. C. Rectum, polypectomies (2): Fragments of tubular adenomata; negative for high- grade dysplasia or carcinoma. Comment: Part A has areas of traditional high-grade adenomatous dysplasia. The entire lesion should be removed, if not done so already. Code(s): D12.6 - Benign neoplasm of colon, unspecified Category: Medical Plan: Patient just recently had a colonoscopy December 2023 tubular adenoma (5) Sinus congestion: Code(s): R09.81 - Nasal congestion Category: Medical Plan History of Present Illness The patient is a 59-year-old male presenting for follow-up of chronic conditions including diabetes mellitus, hypercholesterolemia, hypertension, and anxiety disorder. The patient has a history of diabetes mellitus, currently managed with metformin 500 mg twice daily. His recent hemoglobin A1c was 10.2%, indicating poor glycemic control. He reports recent weight loss and increased physical activity, including walking, but acknowledges dietary indiscretions such as soda consumption. The patient is also being treated for hypercholesterolemia with simvastatin 5 mg daily. He has not had recent blood work to assess cholesterol levels. Hypertension is managed with metoprolol 50 mg twice daily. His blood pressure was noted to be slightly elevated at 144 mmHg during the visit. The patient has a history of anxiety disorder and is requesting a refill of his medication prior to traveling to [place]. He underwent a colonoscopy in December 2023, which revealed high grade dysplasia and a tubular adenoma. The patient reports recurrent sinusitis, previously treated with surgery, and is currently experiencing symptoms suggestive of a sinus infection. Health Maintenance - Colonoscopy performed in December 2023, revealing high grade dysplasia and tubular adenoma - Blood work pending for diabetes, cholesterol, and hypertension management Social History - Exercise: Patient reports increased physical activity, including walking. - Diet: Reports dietary indiscretions such as soda consumption, but has started drinking more water and eating healthier. - Travel: Plans to travel to [place], requiring management of anxiety disorder. Review of Systems - Endocrine: Reports poor glycemic control with recent A1c of 10.2%. - Cardiovascular: Reports slightly elevated blood pressure at 144 mmHg. - Respiratory: Reports symptoms suggestive of sinusitis. - Psychiatric: Reports anxiety disorder, requesting medication refill. Physical Exam - Cardiovascular: Blood pressure measured at 144 mmHg. Results - Labs: Hemoglobin A1c 10.2% - Tests: Colonoscopy in December 2023 showing high grade dysplasia and tubular adenoma Plan The patient will continue on metformin 500 mg twice daily for diabetes management, with a goal to reduce hemoglobin A1c to below 6.5%. He is advised to increase physical activity and adhere to dietary modifications to improve glycemic control. For hypercholesterolemia, the patient will continue simvastatin 5 mg daily and is advised to complete pending blood work to assess cholesterol levels. Hypertension management will continue with metoprolol 50 mg twice daily, and blood pressure will be monitored regularly. Anxiety disorder will be managed with a refill of the current medication, especially in preparation for travel to [place]. The patient is prescribed Augmentin for sinusitis, with instructions to monitor for potential side effects such as diarrhea. Follow-up is scheduled for May to reassess all conditions and evaluate the effectiveness of the current management plan. Patient was informed and verbally consented to the use of an ambient scribe for clinic note documentation during this visit. Discussion Notes I discussed with the patient the importance of managing his diabetes, emphasizing the need to lower his hemoglobin A1c to below 6.5% through medication adherence and lifestyle changes. We reviewed the current management of his hypercholesterolemia and hypertension, highlighting the necessity of completing blood work and monitoring blood pressure regularly. I also addressed his anxiety disorder, ensuring he has the necessary medication for his upcoming travel. For his sinusitis, I prescribed Augmentin and advised him on potential side effects, recommending yogurt to mitigate diarrhea if it occurs. We agreed on a follow-up in May to reassess his conditions and adjust the management plan as needed. Patient Instructions - Continue taking metformin 500 mg twice daily. - Increase physical activity and adhere to dietary changes to improve blood sugar control. - Complete pending blood work for cholesterol and diabetes management. - Monitor blood pressure regularly and continue metoprolol 50 mg twice daily. - Take prescribed Augmentin for sinusitis and monitor for side effects. - Refill anxiety medication before traveling to [place]. - Follow up in May for reassessment of all conditions. Orders: Orders AMB Hemoglobin A1c Today Z13.9 - Encounter for screening, unspecified Comprehensive Met. Panel Today E11.65 - Type 2 diabetes mellitus with hyperglycemia Complete Blood Count Auto Diff Today E11.65 - Type 2 diabetes mellitus with hyperglycemia Microalbumin, Random (w Creat) Today E11.65 - Type 2 diabetes mellitus with hyperglycemia Free T4 (Free Thyroxine) Today E11.65 - Type 2 diabetes mellitus with hyperglycemia Vitamin B12 and Folate Today E11.65 - Type 2 diabetes mellitus with hyperglycem ia Prostate Specific Antigen Scr Today E11.65 - Type 2 diabetes mellitus with hyperglycemia Creatinine Urine Today E11.65 - Type 2 diabetes mellitus with hyperglycemia Thyroid Stimulating Hormone Today E11.65 - Type 2 diabetes mellitus with hyperglycemia Lipid Panel Today E11.65 - Type 2 diabetes mellitus with hyperglycemia, E78.00 - Pure hypercholesterolemia, unspecified Hemoglobin A1c Today E11.65 - Type 2 diabetes mellitus with hyperglycemia Medications: New amoxicillin-pot clavulanate 875-125 mg 1 tab PO BID 14 tabs 0RF E11.65 - Type 2 diabetes mellitus with hyperglycemia Refilled alprazolam 0.25 mg PO DAILY PRN 7 tabs 0RF anxiety F41.9 - Anxiety disorder, unspecified
== END 2024-12-26 15:26 | disposition home or self-care (01) ==
LOC: HO.HMCH 14:03
PROVIDERS: PCP Internal Medicine; Visit Provider Internal Medicine
DX: E11.65 Type 2 diabetes mellitus with hyperglycemia (principal); I10 Essential (primary) hypertension; E78.00 Pure hypercholesterolemia, unspecified; D12.6 Benign neoplasm of colon, unspecified; R09.81 Nasal congestion; Z13.9 Encounter for screening, unspecified

== ENCOUNTER → 2024-12-26 14:02 | Outpatient (BNVA) | payer OTHER, SELFPAY | PROVIDERS: PCP Internal Medicine; Visit Provider Internal Medicine | DX: E11.65 Type 2 diabetes mellitus with hyperglycemia (principal); E78.00 Pure hypercholesterolemia, unspecified; I10 Essential (primary) hypertension; D12.6 Benign neoplasm of colon, unspecified; R09.81 Nasal congestion; Z79.84 Long term (current) use of oral hypoglycemic drugs | CPT/HCPCS: 83036; 96127 ==